=== PATIENT | female | born 1955 | race Caucasian/White ===

== ENCOUNTER 2021-02-04 14:17 | Emergency (ER) | payer MEDICARE, OTHER ==
[~2021-02-04] VITALS: Ht 165.1 cm; Wt 77.0 kg
[2021-02-04] MEDS ORDERED: CASIRIVIMAB/IMDEVIMAB inject. 10 ML in normal saline 100ml IV soln 100 ML IV ONE (16:30)
--- NOTE | 2021-02-04 16:49 | NUR ---
PT HAS READ FACT SHEET ON REGENERON, SHE VERBALIZED UNDERSTANDING THE INFO ON FACT SHEET, SHE HAS NO QUESTIONS AND WOULD LIKE TO RECEIVE MEDICATION
[2021-02-04 18:12] VITALS: BP 154/93
== END 2021-02-04 18:05 | disposition home or self-care (01) ==
LOC: ER 14:19
DX: U07.1 COVID-19 (principal); J02.9 Acute pharyngitis, unspecified; R50.9 Fever, unspecified; R06.02 Shortness of breath; R09.89 Other specified symptoms and signs involving the circulatory and respiratory systems; R05 Cough; E11.9 Type 2 diabetes mellitus without complications; Z95.0 Presence of cardiac pacemaker
CPT/HCPCS: 99283; M0243; Q0244